=== PATIENT | female | born 1995 | race Caucasian/White ===

== ENCOUNTER 2024-01-21 22:59 | Outpatient (CLI) | payer BC, SELFPAY ==
[2024-01-21 23:18] VITALS: BP 133/85; PULSE 82; TEMP 36.6
[2024-01-21 23:34] VITALS: BP 123/72; PULSE 77
[2024-01-21 23:49] VITALS: BP 124/75; PULSE 91
[2024-01-22] MEDS: hydrOXYzine pamoate 25 MG CAPSULE 100 MG PO (01:05)
[2024-01-22] MEDS: MORPHINE 10 MG/ML inj IM (01:07)
--- NOTE | 2024-01-22 04:01 | PC.OBNST ---
NST Note NST Note Start: 01/21/24 23:08 Freq: ONCE Status: Active Protocol: Document 01/22/24 04:00 MARITA (Rec: 01/22/24 04:01 MARITA [id number]) NST Note 3 Para (# of births) 2 EDC 02/02/24 Gestational Age In Weeks & Days 38 Weeks & 3 Days Patient Presented with Complaint(s) of Contractions/cramping Reactive Yes RN Rosas Maza, RN Date 01/22/24 Reactive Yes LONDON Oliver RN Date 01/22/24 OB NST charge Yes Complete NST Note via Write Note Yes The provider's electronic signature indicates the NST is reactive/appropriate for gestational age. *Note to provider: If an addendum is required, open the patient's chart and click on the note under the Nurse/Allied Health tab.
--- NOTE | 2024-01-22 15:50 | P.NST_ITS ---
NST Note NST Note NST Note: NST Note NST Note Start: 01/21/24 23:08 Freq: ONCE Status: Discharge Protocol: Document 01/22/24 04:00 MARITA (Rec: 01/22/24 04:01 MARITA [id number]) NST Note 3 Para (# of births) 2 EDC 02/02/24 Gestational Age In Weeks & Days 38 Weeks & 3 Days Patient Presented with Complaint(s) of Contractions/cramping Reactive Yes RN Rosas Maza, [place] Date 01/22/24 Reactive Yes LONDON Oliver RN Date 01/22/24 OB NST charge Yes Complete NST Note via Write Note Yes Addendum: pt is 28yo at 38 3/7 wks gestation seen in triage for labor rule out. FHM showed FHT 130-140's with moderate variability, +accels. There was a ?late decel in setting of accel and overall strip with moderate variability and lots of acce lerations. She as monitored for 3+ hours and cervix remained unchanged without any other concerning features so discharged home with labor precautions.
== END 2024-01-22 03:06 | disposition home or self-care (01) ==
LOC: OB OUT 23:01 → OB 23:01
PROVIDERS: Visit Provider Family Medicine
DX: O47.1 False labor at or after 37 completed weeks of gestation (principal); Z3A.38 38 weeks gestation of pregnancy
CPT/HCPCS: 59025; G0463; A9270; J2270